=== PATIENT | female | born 1945 | race Caucasian/White ===

== ENCOUNTER 2019-05-12 14:03 | Outpatient (CLI) | payer MEDICARE ==
[2019-05-12] MEDS ORDERED: GADOBUTROL 7.5 MMOL/7.5 ML VIAL ONE (15:08)
[2019-05-12] MEDS ORDERED: GADOBUTROL 7.5 MMOL/7.5 ML VIAL IVP ONE (15:31)
--- NOTE | 2019-05-12 16:17 | MRI Report ---
Reason: MEMORY LOSS Procedure Date: 05/12/2019 Accession Number: [id number] / [id number] Procedure: MRI - Brain W/WO CPT Code: FULL RESULT: EXAM: MRI BRAIN WITHOUT AND WITH CONTRAST EXAM DATE: 05/12/2019 03:39 PM. CLINICAL HISTORY: Memory loss. COMPARISON: None. TECHNIQUE: Multiplanar, multisequence T1-weighted and fluid-sensitive MR sequences of the brain were performed before and after administration of intravenous contrast. Sequences optimized for routine evaluation. Other: None. IV Contrast: 7.5 cc Gadavist. FINDINGS: Brain Volume: Age-related volume loss is present. Asymmetric volume loss is seen in the anterior temporal lobes bilaterally. Parenchyma: No acute hemorrhage, mass, or infarct. Mild confluent periventricular with patchy deep white matter T2/FLAIR bright signal is seen in the cerebral hemispheres. No cortical signal abnormality. No abnormal enhancement. Ventricles/Cisterns: Age-related prominence to the ventricular system and overlying cortical sulci is noted. No hydrocephalus. No abnormal extra-axial fluid collection or hemorrhage. Orbits: Symmetric and unremarkable. Sella Turcica: The pituitary gland, cavernous sinuses, suprasellar cistern and optic chiasm are unremarkable. IAC: Symmetric and unremarkable. Vasculature: Normal signal flow void is seen in the major arterial structures at the skull base. Note is made of dominant left vertebral artery. Partial origin of bilateral LEAD MILITARY ANALYST is seen as continuation of the P-comm. The dural sinuses are patent and enhance normally. Sinuses: No acute sinus disease. Bones: No focal pathologic appearing marrow signal changes. Other: None. IMPRESSION: 1. No acute intracranial abnormality. No acute infarct, mass, hemorrhage, or abnormal enhancement. 2. Mild senescent change. Age-related volume loss. Mild white matter T2/FLAIR bright signal is seen in the cerebral hemispheres. This is nonspecific. This can be seen secondary to small vessel ischemic change. 3. Mildly prominent anterior temporal lobe atrophy with prominence to sulci. This could be secondary to temporal lobe based neurodegenerative etiology. RADIA
== END 2019-05-12 14:04 | disposition home or self-care (01) ==
LOC: DI 14:03
PROVIDERS: ATTEND Physician Assistant
DX: R41.3 Other amnesia (principal)
CPT/HCPCS: 70553; A9585

== ENCOUNTER 2019-08-27 06:46 | Emergency (ER) | payer MEDICARE ==
--- NOTE | 2019-08-27 07:27 | ED Physician Documentation ---
PD HPI URI - Stated complaint Stated Complaint: FLU LIKE SYX - Chief complaint Chief Complaint: General - History obtained from History obtained from: Patient - History of Present Illness Timing - onset: How many weeks ago (2) Timing duration: Weeks (2) Timing details: Gradual onset, Still present (URI symptoms and has persistent sinus symptoms and now mainly nasal discharge.) Associated symptoms: Nasal congestion, Sinus pain. No: Fever, Chills, NVD Contributing factors: No: Sick contact, Immunocompromised Review of Systems Constitutional: denies: Fever, Chills Nose: reports: Congestion, Sinus pressure / pain. denies: Rhinorrhea / runny nose Throat: denies: Sore throat Respiratory: denies: Cough GI: denies: Nausea, Vomiting PD PAST MEDICAL HISTORY - Past Medical History Past Medical History: No Cardiovascular: None Respiratory: None Neuro: None Endocrine/Autoimmune: None GI: None CHRONIC MANAGER: None : None HEENT: None Psych: None Musculoskeletal: None Derm: None - Past Surgical History Past Surgical History: Yes General: Appendectomy - Present Medications Home Medications: Ambulatory Orders Medication Instructions Recorded Confirmed Amoxicillin 500 mg PO TID #20 capsule 08/27/19 Cetirizine [ZyrTEC] 10 mg PO DAILY #15 tablet 08/27/19 dexAMETHasone [Decadron] 4 mg PO DAILY #7 tablet 08/27/19 - Allergies Allergies/Adverse Reactions: Allergies Allergy/AdvReac Type Severity Reaction Status Date / Time No Known Drug Allergies Allergy Verified 08/27/19 06:58 - Social History Does the pt smoke?: No Smoking Status: Never smoker Does the pt drink ETOH?: No Does the pt have substance abuse?: No - Immunizations Immunizations are current?: No - POLST Patient has POLST: No PD ED PE NORMAL - Vitals Vital signs reviewed: Yes - General General: Alert and oriented X 3, No acute distress, Well developed/nourished - HEENT HEENT: Ears normal, Pharynx benign, Other (some sinus tenderness) - Neck Neck: Supple, no meningeal sign, No adenopathy - Cardiac Cardiac: RRR, No murmur - Respiratory Respiratory: Clear bilaterally Results - Vitals Vitals: Oxygen O2 Source Room air PD MEDICAL DECISION MAKING - ED course Complexity details: considered differential, d/w patient Departure - Departure Disposition: 01 Home, Self Care Clinical Impression: Sinusitis, acute Qualifiers: Sinusitis location: unspecified location Recurrence: non-recurrent Qualified Code(s): J01.90 - Acute sinusitis, unspecified Condition: Stable Record reviewed to determine appropriate education?: Yes Instructions: ED Sinusitis Abx Tx Follow-Up: Mindy Turcios PA [Primary Care Provider] - Prescriptions: Amoxicillin 500 mg PO TID #20 capsule Cetirizine [ZyrTEC] 10 mg PO DAILY #15 tablet dexAMETHasone [Decadron] 4 mg PO DAILY #7 tablet Comments: I would not take the decongestant tablets, and today only, could use the decongestant nasal spray just couple of times. Use the saline nasal spray several times daily to try to cleanse the nasal passage. Use cetirizine antihistamine daily for the next week or so. Decadron steroid anti-inflammatory daily for the week as well. This commonly will be viral illnesses though with the symptoms localized into the nose and sinuses, it does suggest possibly bacterial so we could use some antibiotic as well. Take the amoxicillin as directed for a week. The combination should improve things through the day and into tomorrow or so. Discharge Date/Time: 08/27/19 08:13
[2019-08-27] MEDS ORDERED: DEXAMETHASONE 10 MG/ML VIAL PO STA (07:53)
[2019-08-27] MEDS ORDERED: diphenhydrAMINE 25 MG CAPSULE PO STA (07:53)
[2019-08-27] MEDS ORDERED: CHERRY SYRUP 10 ML UDC PO ONE (07:53)
[2019-08-27] MEDS ORDERED: AMOXICILLIN 250 MG CAPSULE PO STA (07:54)
[2019-08-27 08:11] VITALS: BP 149/83
== END 2019-08-27 08:13 | disposition home or self-care (01) ==
LOC: ED 06:46
DX: J01.90 Acute sinusitis, unspecified (principal)
CPT/HCPCS: 99283; 99284; A9270

== ENCOUNTER 2019-12-27 08:19 | Outpatient (CLI) | payer MEDICARE ==
--- NOTE | 2019-12-27 12:25 | Ultrasound Report ---
Reason: RUQ PAIN Procedure Date: 12/27/2019 Accession Number: [id number] / [id number] Procedure: US - Abdomen Limited CPT Code: Final Report FULL RESULT: EXAM: ABDOMEN ULTRASOUND LIMITED, RUQ EXAM DATE: 12/27/2019 10:12 AM. CLINICAL HISTORY: RUQ PAIN. COMPARISON: None. TECHNIQUE: Real-time scanning was performed with static images obtained. FINDINGS: Liver: Mildly inhomogeneous, increased echogenicity, suggesting diffuse fatty infiltration.No focal lesion. Liver measures 12.6 cm craniocaudally. Main portal vein flow: Hepatopetal. Gallbladder: Gallbladder wall thickness is normal.No gallstones.Sonographic Milner sign is absent, per technologist's notes. Biliary System: Common bile duct measures 15 mm. No intrahepatic ductal dilatation. Pancreas: Visualized portion is unremarkable. Main pancreatic duct measures 2 mm, within normal limits. Right Kidney: 11.2 cm longitudinally. Normal echotexture.No hydronephrosis.Mid pole cyst measuring 16 mm; no imaging follow-up is recommended per consensus recommendations based on imaging criteria.No calculus. Other: IMPRESSION: 1. No cholelithiasis or supporting ultrasound evidence of acute cholecystitis. 2. Enlarged common bile duct measuring up to 15 mm. MRCP be considered for further evaluation as clinically warranted. 3. Probable fatty liver. RADIA
== END 2019-12-27 08:20 | disposition home or self-care (01) ==
LOC: DI 08:19
PROVIDERS: ATTEND Physician Assistant
DX: K83.8 Other specified diseases of biliary tract (principal)
CPT/HCPCS: 76705

== ENCOUNTER 2020-01-01 08:00 | Outpatient (CLI) | payer MEDICARE ==
[2020-01-01 18:10] LABS: BASOPHILS % (AUTO) 0.7 %; EOSINOPHILS # (AUTO) 0.1 10^3/uL (0.0-0.7); EOSINOPHILS % (AUTO) 1.4 %; HGB - HEMOGLOBIN 13.2 g/dL (12.0-16.0); LYMPHOCYTES # (AUTO) 1.5 10^3/uL (1.5-3.5); LYMPHOCYTES % (AUTO) 26.9 %; MEAN CORPUSCULAR HEMOGLOBIN 28.2 pg (27.0-31.0); MEAN CORPUSCULAR HGB CONC 31.4 g/dL (32.0-36.0); MEAN PLATELET VOLUME 10.6 fL (7.9-10.8); MONOCYTES # (AUTO) 0.4 10^3/uL (0.0-1.0); MONOCYTES % (AUTO) 6.6 %; NEUTROPHILS # (AUTO) 3.6 10^3/uL (1.5-6.6); NEUTROPHILS % (AUTO) 64.2 %; PLT - PLATELET COUNT 248 10^3/uL (130-450); RED BLOOD COUNT 4.68 10^6/uL (4.20-5.40); RED CELL DISTRIBUTION WIDTH 13.1 % (12.0-15.0); WHITE BLOOD COUNT 5.6 x10^3/uL (4.8-10.8)
[2020-01-01 18:44] LABS: ALBUMIN 4.1 g/dL (3.2-5.5); ALBUMIN/GLOBULIN RATIO 1.3 (1.0-2.2); BILIRUBIN,TOTAL 0.8 mg/dL (0.2-1.0); CALCIUM 9.3 mg/dL (8.5-10.3); TOTAL PROTEIN 7.2 g/dL (6.7-8.2)
== END 2020-01-01 23:59 | disposition home or self-care (01) ==
LOC: LAB.WCP 08:00
PROVIDERS: ATTEND Physician Assistant
DX: R10.11 Right upper quadrant pain (principal)
CPT/HCPCS: 36415; 80053; 85025

== ENCOUNTER 2020-08-22 14:45 | Outpatient (CLI) | payer MEDICARE | END 2020-08-22 23:59 | disposition home or self-care (01) | LOC: LAB.WCP 14:45 | PROVIDERS: ATTEND Physician Assistant | DX: E53.8 Deficiency of other specified B group vitamins (principal) | CPT/HCPCS: 36415; 82607; 83921 ==

== ENCOUNTER 2021-10-24 15:34 | Outpatient (CLI) | payer MEDICARE ==
[2021-10-24 18:01] LABS: BASOPHILS % (AUTO) 0.5 %; EOSINOPHILS # (AUTO) 0.1 10^3/uL (0.0-0.7); EOSINOPHILS % (AUTO) 0.8 %; HCT - HEMATOCRIT 45.7 % (37.0-47.0); HGB - HEMOGLOBIN 14.7 g/dL (12.0-16.0); LYMPHOCYTES # (AUTO) 1.7 10^3/uL (1.5-3.5); LYMPHOCYTES % (AUTO) 21.4 %; MEAN CORPUSCULAR HEMOGLOBIN 28.1 pg (27.0-31.0); MEAN CORPUSCULAR HGB CONC 32.2 g/dL (32.0-36.0); MEAN CORPUSCULAR VOLUME 87.4 fL (81.0-99.0); MEAN PLATELET VOLUME 9.8 fL (7.9-10.8); MONOCYTES # (AUTO) 0.6 10^3/uL (0.0-1.0); MONOCYTES % (AUTO) 7.4 %; NEUTROPHILS # (AUTO) 5.4 10^3/uL (1.5-6.6); NEUTROPHILS % (AUTO) 69.5 %; PLT - PLATELET COUNT 310 10^3/uL (130-450); RED BLOOD COUNT 5.23 10^6/uL (4.20-5.40); RED CELL DISTRIBUTION WIDTH 13.4 % (12.0-15.0); WHITE BLOOD COUNT 7.7 x10^3/uL (4.8-10.8)
[2021-10-24 18:18] LABS: ALBUMIN 4.5 g/dL (3.2-5.5); ALBUMIN/GLOBULIN RATIO 1.3 (1.0-2.2); ALKALINE PHOSPHATASE 60 IU/L (42-121); ALT ALANINE AMINOTRANSFERASE 22 IU/L (10-60); AST ASPARTATE AMINOTRANSFERASE 26 IU/L (10-42); BILIRUBIN,TOTAL 0.3 mg/dL (0.2-1.0); BUN - BLOOD UREA NITROGEN 11 mg/dL (6-20); CALCIUM 9.6 mg/dL (8.5-10.3); CARBON DIOXIDE - CO2 26 mmol/L (21-32); CHLORIDE 100 mmol/L (101-111); CHOL/HDL RATIO 4.9 (<4.4); CHOLESTEROL 262 mg/dL; GFR - MDRD 54 (>89); GLUCOSE 111 mg/dL (70-100); HDL CHOLESTEROL 53 mg/dL; LDL CHOLESTEROL,CALCULATED 158 mg/dL; POTASSIUM 3.8 mmol/L (3.5-5.0); SODIUM 136 mmol/L (135-145); TRIGLYCERIDES 257 mg/dL; VLDL CHOLESTEROL 51 mg/dL
[2021-10-24 18:28] LABS: THYROID STIMULATING HORMONE 1.95 uIU/mL (0.34-5.60)
[2021-10-24 18:40] LABS: FOLATE 11.81 ng/mL (5.90 - >24.8)
== END 2021-10-24 15:35 | disposition home or self-care (01) ==
LOC: LAB.N 15:34
PROVIDERS: ATTEND Nurse Practitioner Family
DX: E78.5 Hyperlipidemia, unspecified (principal); E03.9 Hypothyroidism, unspecified; R41.3 Other amnesia
CPT/HCPCS: 36415; 80053; 80061; 81001; 82607; 82746; 83721; 84443; 85025; 87086

== ENCOUNTER 2022-05-10 06:29 | Day surgery (SDC) | payer MEDICARE ==
[2022-05-10] MEDS ORDERED: LACTATED RINGERS 1,000 ML IV ONE ×2 (06:53→08:13)
--- NOTE | 2022-05-10 07:04 | ANESTHESIA ---
Pre-Anesthesia VS, & Labs - Diagnosis anal mass - Procedure diagnostic colonoscopy Vital Signs: Temp Pulse Resp BP Pulse Ox O2 Flow Rate 36.1 C L 86 19 146/71 H 98 05/10/22 06:48 05/10/22 06:48 05/10/22 06:48 05/10/22 06:48 05/10/22 06:48 Height: 5 ft 6 in Weight (kg): 58.6 kg Body Mass Index: 20.8 BMI Classification: Normal - NPO >8 hours - Is Patient ?: No - Lab Results Current Lab Results: Laboratory Tests 05/10/22 06:53: POC Whole Bld Glucose 82 Home Medications and Allergies Home Medications: Ambulatory Orders Donepezil [Aricept] 10 mg PO DAILY 05/09/22 Levothyroxine Sodium [Levothyroxine] 50 mcg PO DAILY 05/09/22 Losartan [Cozaar] 50 mg PO DAILY 05/09/22 Lovastatin 5 mg PO DAILY 05/09/22 Memantine HCl [Namenda] 10 mg PO BID 05/09/22 Donepezil [Aricept] 10 mg PO DAILY 05/09/22 Levothyroxine Sodium [Levothyroxine] 50 mcg PO DAILY 05/09/22 Losartan [Cozaar] 50 mg PO DAILY 05/09/22 Lovastatin 5 mg PO DAILY 05/09/22 Memantine HCl [Namenda] 10 mg PO BID 05/09/22 Allergies/Adverse Reactions: Allergies Allergy/AdvReac Type Severity Reaction Status Date / Time No Known Drug Allergies Allergy Verified 04/26/22 11:49 Anes History & Medical History - Anesthetic History Anesthesia Complications: reports: Post-Operative Nausea/Vomiting - Medical History Cardiovascular: reports: Hypertension Pulmonary: reports: None Gastrointestinal: reports: None Urinary: reports: None Neuro: reports: Dementia (memory loss) Musculoskeletal: reports: None Endocrine/Autoimmune: reports: None Blood Disorders: reports: None Skin: reports: None Smoking Status: Former smoker Psychosocial: reports: No issues indicated History of Cancer?: No - Surgical History General: reports: Appendectomy Exam General: Alert, Oriented x3, Cooperative, No acute distress Dental: WNL Mouth Openin Fingerbreadth Neck Mobility: Normal Mallampati classification: III Thyromental Distance: 4-6 cm Mental/Cognitive Status: Alert/Oriented X3, Normal for patient Plan Anesthesia Type: General, Total IV Consent for Procedure(s) Verified and Reviewed: Yes Code Status: Attempt Resuscitation ASA classification: 3-Severe systemic disease Is this case an emergency?: No
[2022-05-10] MEDS ORDERED: PROPOFOL 500 MG/50 ML 500 MG/50 ML VIAL ONE (07:25)
[2022-05-10 08:31] VITALS: BP 125/72
--- NOTE | 2022-05-10 10:08 | ANESTHESIA POST OP EVALUATION ---
Anesthesia Post Eval - Post Anesthesia Eval Vitals: Last Vital Signs Temp 36.9 C 05/10/22 08:30 Pulse 72 05/10/22 08:30 Resp 16 05/10/22 08:30 BP 125/72 05/10/22 08:30 Pulse Ox 100 05/10/22 08:30 O2 Flow Rate CV Function Including HR & BP: Stable Pain Control: Satisfactory Nausea & Vomiting: Negative Mental Status: Baseline Respiratory Status: Airway Patent Hydration Status: Satisfactory Anesthesia Complications: None
== END 2022-05-10 06:30 | disposition home or self-care (01) ==
LOC: SDS 06:29
PROVIDERS: ATTEND Surgery
PROC: 0DBP8ZX Excision of Rectum, Via Natural or Artificial Opening Endoscopic, Diagnostic (ICD-10-PCS; 2022-05-10)
PROC: 0DBQ8ZX Excision of Anus, Via Natural or Artificial Opening Endoscopic, Diagnostic (ICD-10-PCS; principal; 2022-05-10 07:30)
DX: C21.8 Malignant neoplasm of overlapping sites of rectum, anus and anal canal (principal); K62.6 Ulcer of anus and rectum; K57.30 Diverticulosis of large intestine without perforation or abscess without bleeding; I10 Essential (primary) hypertension; Z87.891 Personal history of nicotine dependence
CPT/HCPCS: 45380; J7120

== ENCOUNTER 2022-05-17 11:33 | Day surgery (SDC) | payer MEDICARE ==
[2022-05-17] MEDS ORDERED: LACTATED RINGERS 1,000 ML IV ONE ×2 (12:01→14:59)
--- NOTE | 2022-05-17 13:13 | ANESTHESIA ---
Pre-Anesthesia VS, & Labs - Diagnosis ANAL SQUAMOUS CELL CANCER - Procedure ROSALINO CATH PLACEMENT Vital Signs: Temp Pulse Resp BP Pulse Ox O2 Flow Rate 36.3 C L 95 16 121/68 99 05/17/22 11:45 05/17/22 11:45 05/17/22 11:45 05/17/22 11:45 05/17/22 11:45 Height: 5 ft 4 in Weight (kg): 55 kg Body Mass Index: 20.8 BMI Classification: Normal - NPO >8 hours - Is Patient ?: No Home Medications and Allergies Donepezil [Aricept] 10 mg PO DAILY 05/09/22 Levothyroxine Sodium [Levothyroxine] 75 mcg PO DAILY 05/09/22 Losartan [Cozaar] 50 mg PO DAILY 05/09/22 Lovastatin 5 mg PO DAILY 05/09/22 Memantine HCl [Namenda] 10 mg PO BID 05/09/22 Cyanocobalamin (Vitamin B-12) [Vitamin B-12] 1,000 mcg PO DAILY 05/17/22 Allergies/Adverse Reactions: Allergies Allergy/AdvReac Type Severity Reaction Status Date / Time No Known Drug Allergies Allergy Verified 05/15/22 17:21 Anes History & Medical History - Anesthetic History Anesthesia Complications: reports: No previous complications Family history of Anesthesia Complications: Denies Family history of Malignant Hyperthermia: Denies - Medical History Cardiovascular: reports: Hypertension Pulmonary: reports: None Gastrointestinal: reports: None Urinary: reports: None Neuro: reports: Alzhiemer's, Dementia Musculoskeletal: reports: None Endocrine/Autoimmune: reports: None Blood Disorders: reports: None Skin: reports: None Smoking Status: Former smoker Psychosocial: reports: No issues indicated History of Cancer?: Yes - Surgical History General: reports: Appendectomy, Colonoscopy, EGD (WITH DILATION), Other (ERCP W/ BILE DUCT BIOPSY - +PANCREATITIS) Gynecologic: reports: Tubal ligation, Hysterectomy Exam General: Alert, Oriented x3, Cooperative, No acute distress Dental: Poor dentition Mouth Openin Fingerbreadth Neck Mobility: Normal Mallampati classification: III Thyromental Distance: less than 4 cm Mental/Cognitive Status: Normal for patient, Confused Cognitive Status: Dementia, Memory impairment Plan Anesthesia Type: General Consent for Procedure(s) Verified and Reviewed: Yes Code Status: Attempt Resuscitation ASA classification: 2-Mild systemic disease Is this case an emergency?: No
[2022-05-17] MEDS ORDERED: PROPOFOL 200 MG/20 ML VIAL IVP ONE (13:36)
[2022-05-17] MEDS ORDERED: LIDOCAINE MPF 2%-EPI 1:200000 20 ML VIAL ONE (13:49)
[2022-05-17] MEDS ORDERED: BUPIVACAINE 0.5% PF 30 ML VIAL ONE (13:50)
[2022-05-17] MEDS ORDERED: BUPIVACAINE 0.25% PF 10 ML VIAL ONE (13:50)
[2022-05-17] MEDS ORDERED: MIDAZOLAM 2 MG/2 ML VIAL ONE (13:54)
[2022-05-17] MEDS ORDERED: LIDOCAINE 1% 50 ML MDV ONE (13:56)
[2022-05-17] MEDS ORDERED: BUPIVACAINE 0.25% PF 10 ML VIAL SUBQ ONE ×2 (14:23)
[2022-05-17] MEDS ORDERED: LIDOCAINE 1% 50 ML MDV SUBQ ONE ×2 (14:23)
[2022-05-17] MEDS ORDERED: ceFAZolin 1 GM VIAL ONE (14:31)
[2022-05-17] MEDS ORDERED: ONDANSETRON 4 MG/2 ML VIAL ONE (14:53)
[2022-05-17] MEDS ORDERED: DEXAMETHASONE 4 MG/ML VIAL ONE (14:53)
[2022-05-17] MEDS ORDERED: MORPHINE 2 MG/ML CARPUJECT IVP PRN (14:59)
[2022-05-17] MEDS ORDERED: fentaNYL 100 MCG/2 ML VIAL IVP PRN (14:59)
[2022-05-17] MEDS ORDERED: ePHEDrine 50 MG/ML VIAL IVP PRN (14:59)
[2022-05-17] MEDS ORDERED: HYDROmorphone 0.5 MG/0.5 ML SYRINGE IVP PRN (14:59)
[2022-05-17] MEDS ORDERED: ONDANSETRON 4 MG/2 ML VIAL IVP PRN ×2 (14:59→15:06)
[2022-05-17] MEDS ORDERED: ATROPINE ABBOJECT 1 MG/10 ML SYRINGE IVP PRN (14:59)
[2022-05-17] MEDS ORDERED: NALOXONE 0.4 MG/ML VIAL IVP PRN (14:59)
[2022-05-17] MEDS ORDERED: METOCLOPRAMIDE 10 MG/2 ML VIAL IVP PRN (14:59)
[2022-05-17] MEDS ORDERED: LACTATED RINGERS 1,000 ML IV SCH (15:00)
[2022-05-17] MEDS ORDERED: HYDROcod/ACETAM 5/325 MG TABLET PO PRN (15:06)
--- NOTE | 2022-05-17 15:10 | OPERATIVE REPORT ---
Operative Report - General Procedure Date: 05/17/22 Planned Procedure: left subclavian power port placement Pre-Op Diagnosis: anal cancer Procedure Performed: left subclavian power port placement fluoroscopic guidance Post Op Diagnosis: anal cancer - Procedure Note Primary Surgeon: cheryl august Anesthesia Technique: General LMA, Local Pathology: none Estimated Blood Loss (mL): 2 Drain/Tube Type: Other (none) Indications: need for chemotherapy Findings: tip at the svc/ atrium junction. good flush and flow Complications: none - Other Other Information/Narrative: The patient was properly identified brought to the operating room and placed in supine position. Monitored anesthesia care was given as well as IV sedation. A towel roll was placed under the upper back. The patient was prepped and draped in a sterile fashion and given preoperative antibiotics. Local anesthetic was given. The left subclavian vein was easily accessed first pass with a needle. Guide wire placed and position confirmed. A subcutaneous pocket on the left upper chest was created measuring approximately 2-1/2 cm. Portacatheter tubing was then placed subcutaneous up to the venous access point. The portacatheter tubing was then easily placed with the use of a dilator peel-away sheath. The tubing was aspirated and flushed with saline. Under fluoroscopic guidance the tubing was pulled back to the junction of the atrium and the superior vena cava. The portacatheter aspirated and flushed easily assuring good position. The portacatheter was then cut to size and further assembled. The port was secured to subcutaneous tissue with 2 interrupted 4-0 Prolene sutures. The port again was aspirated and flushed now with heparin. Buried interrupted subdermal 3-0 Vicryl sutures were then placed. Skin was closed with buried interrupted and running 4-0 Monocryl subcuticular suture. Dressing was applied. The patient tolerated the procedure well was awakened and brought to recovery in good condition.
--- NOTE | 2022-05-17 15:34 | ANESTHESIA POST OP EVALUATION ---
Anesthesia Post Eval - Post Anesthesia Eval Vitals: Last Vital Signs Temp 36.3 C L 05/17/22 14:59 Pulse 60 05/17/22 15:05 Resp 17 05/17/22 15:05 BP 139/56 H 05/17/22 15:05 Pulse Ox 97 05/17/22 15:05 O2 Flow Rate CV Function Including HR & BP: Stable Pain Control: Satisfactory Nausea & Vomiting: Negative Mental Status: Baseline Respiratory Status: Airway Patent Hydration Status: Satisfactory Anesthesia Complications: None
[2022-05-17 16:30] VITALS: BP 147/58
--- NOTE | 2022-05-18 11:09 | XRAY Report ---
PROCEDURE: OR Port-A-Cath INDICATIONS: Port-a-cath placement TECHNIQUE: Intraoperative fluoroscopic images of right upper chest were obtained. COMPARISON: None. FINDINGS: Intraoperative fluoroscopic images of the chest shows placement of a left-sided central venous cathet er with the tip in the region of SVC.. IMPRESSION: Fluoroscopy guidance was provided intraoperatively for left chest wall Port-A-Cath placement with the tip seen in SVC. Reviewed by: Charlie Ventura MD on 05/18/2022 11:07 AM PDT Approved by: Charlie Ventura MD on 05/18/2022 11:07 AM PDT Station ID: [id number]
== END 2022-05-17 11:34 | disposition home or self-care (01) ==
LOC: SDS 11:33
PROVIDERS: ATTEND Surgery
DX: C21.0 Malignant neoplasm of anus, unspecified (principal); I10 Essential (primary) hypertension; Z87.891 Personal history of nicotine dependence
CPT/HCPCS: 36561; C1788; J7120